=== PATIENT | female | born 1985 | race Caucasian/White ===

== ENCOUNTER 2019-09-02 09:18 | Emergency (ER) | payer BC, SELFPAY ==
[2019-09-02 09:30] VITALS: BP 93/65; PULSE 95; RESP 20; TEMP 37.1; O2SAT 98
--- NOTE | 2019-09-02 10:03 | ED.GENADULT ---
HPI - General Adult General Chief complaint: Upper Respiratory Infection Stated complaint: fever/facial pain/sinus pressure Time Seen by Provider: 09/02/19 10:03 Source: patient and RN notes reviewed Mode of arrival: ambulatory Limitations: no limitations History of Present Illness HPI narrative: 34-year-old female presents with complaints of upper respiratory infection, facial congestion, facial pressure (greater on RT), RT ear pain, cough, and intermittent headaches (not the worst of her life) for the past 3.5 weeks. Zyrtec, Flonase, Dayquil, [place] cold medicine, Sambucol cough medicine, and 800mg of Ibuprofen last this morning @ 05:30 with little relief. No facial swelling. [place] says she completed a 7 day (on 08/20/19) course of Augmentin without relief. Symptoms has increased of the last 4-5 days with increase facial pressure and RT ear pressure, body aches, and continuos fever as high as 101F, orally with intermittent chills and sweats. Dry cough/intermittent productive cough (yellow phlegm). No chest congestion. Nasal congestion. No rhinorrhea. No chest pain or shortness of breath. Exacerbating factors consist of smoke exposure. Denies nausea, vomiting, and abdominal pain. Tolerating po intake well. Remains active. [place] denies being , LMP 08/13/2019. Some parts of this dictation were generated by voice recognition software and may contain typographical and/or grammatical inaccuracies. Related Data Home Medications Medication Instructions Recorded Confirmed cetirizine 10 mg PO DAILY 09/02/19 09/02/19 fluticasone propionate 2 spray INTRANASAL DAILY 09/02/19 09/02/19 ibuprofen 200 mg PO Q6H PRN 09/02/19 09/02/19 Allergies Allergy/AdvReac Type Severity Reaction Status Date / Time No Known Allergies Allergy Verified 09/02/19 09:39 Review of Systems Review of Systems: Narrative: CONSTITUTIONAL: Complains of fever, chills, sweats. EYES: Denies visual changes, redness, discharge. ENT: Complains of RT otalgia, facial congestion and pressure, congestion. Denies sore throat, rhinorrhea. CARDIOVASCULAR: Denies chest pain, palpitations, edema. RESPIRATORY: Denies dyspnea, wheezing. Complains of dry cough/intermittent productive. GASTROINTESTINAL: Denies abdominal pain, nausea, vomiting, diarrhea. GENITOURINARY: Denies dysuria, hematuria, abnormal discharge. SKIN: Denies rash or itching. MUSCULOSKELETAL: Denies acute back pain, joint pain. Complains of myalgia. NEUROLOGIC: Denies numbness or focal weakness. Complains of intermittent [place]. PSYCHIATRIC: Denies anxiety or depression. All systems reviewed & are unremarkable except as noted in HPI and below. [facility] Past Medical History Medical History No significant past medical history Surgical History Surgical History History of adenoidectomy History of tonsillectomy Family History Family History Mother Family history of malignant neoplasm of cervix Social History Social History Alcohol intake: current Comments At time of signature, agree with nurse past medical, surgical, social, and family history. There is no relevant family history pertinent to the presenting complaint. Exam Narrative: Exam Narrative: GENERAL: This is a well-nourished, well-developed patient, in no apparent distress. Talks in full sentences and ambulates with steady gait without dyspnea. HEAD: normocephalic, atraumatic. EYES: PERRL. Sclera clear/white. Vision is grossly intact. EARS: External ears normal, auditory canals clear and without drainage, TMs normal without perforation. Hearing grossly intact. NOSE: External nose normal with no obvious nasal discharge, nares with moderate redness and enlarged turbinates, clear rhinorrhea. S
== END 2019-09-02 10:32 | disposition home or self-care (01) ==
PROVIDERS: Emergency Provider Nurse Practitioner Family
DX: J32.9 Chronic sinusitis, unspecified (principal)
CPT/HCPCS: 99203; G0463

== ENCOUNTER 2020-11-04 13:32 | Emergency (ER) | payer BC, SELFPAY ==
[2020-11-04 13:54] VITALS: BP 98/73; PULSE 88; RESP 12; TEMP 37.5; O2SAT 100
--- NOTE | 2020-11-04 14:26 | ED.URI ---
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 Patient states she has nearly weeklong history of sore throat, associate with definite hoarseness. No fever measured, earache -but she has a dry cough. Symptoms are mild, worse with speaking; she had Covid disease earlier no loss of taste/smell, CP, wheezing, S OB, vomiting/diarrhea. Prescription screen is negative, vital signs remarkable for blood pressure 98/73, similar to prior visit Related Data Allergies Allergy/AdvReac Type Severity Reaction Status Date / Time No Known Allergies Allergy Verified 11/04/20 13:52 Review of Systems Review of Systems: Narrative: General/Constitutional: No weight loss,fever Eyes: N0: Redness,discharge Ears/Nose/Throat: No: Epistaxis,ear discharge Respiratory: Denies: Hemoptysis Gastrointestinal: No Vomiting, Bleeding-rectal Skin: No Lumps, eruption Neurologic: No Focal Weakness,Sz Hematologic: Denies: Petechiae/Purpura Psychiatric: No: Suicida ideationl All Other Systems: Reviewed and Negative PMFSH Past Medical History Medical History (Updated 11/04/20 @ 16:13 by Morgan Francisco MD) No significant past medical history Surgical History Surgical History History of adenoidectomy History of tonsillectomy Family History Family History Mother Family history of malignant neoplasm of cervix Social History Social History Alcohol intake: current Comments At time of signature, agree with nursing past medical, surgical, social and family history. There is no relevant family history pertinent to the presenting complaint Exam Narrative: Exam Narrative: General Appearance: Well appearing, Well nourished EYE: PERRLA, Conjunctiva clear Ears: Auditory canal normal, TM normal Nose: Rhinorrhea, Mucousal erythema Mouth/Throat: MM moist, Uvula midline, Pharyngeal erythema Neck: Supple, No adenopathy Respiratory: No respiratory distress, Breath sounds equal, Clear to auscultation Cardiovascular: RRR, No JVD Musculoskeletal: Non tender, Normal strength Skin: Warm, Dry Neurological: A&O x3, CN II-XII intact Psychiatric: Normal mood, Normal affect t Course Vital Signs Vital signs: Vital Signs Temperature 99.5 F 11/04/20 13:54 Pulse Rate 88 11/04/20 13:54 Respiratory Rate 12 11/04/20 13:54 Blood Pressure 98/73 L 11/04/20 13:54 Pulse Oximetry 100 11/04/20 13:54 Temperature 99.5 F 11/04/20 13:54 Pulse Rate 88 11/04/20 13:54 Respiratory Rate 12 11/04/20 13:54 Blood Pressure 98/73 L 11/04/20 13:54 Pulse Oximetry 100 11/04/20 13:54 MDM - URI/Sore Throat Lab Data Labs: Strep Screen Presumptive Negative *(Reference Range: Negative)* Discharge Plan Discharge Clinical Impression: Odynophonia Pharyngitis Qualifiers: Pharyngitis/tonsillitis etiology: unspecified etiology Qualified Code(s): J02.9 - Acute pharyngitis, unspecified Patient Disposition: Home, Self-Care Condition: Stable Instructions: Antibiotic Form, Laryngitis (ED) Prescriptions: New azithromycin 250 mg tablet See Rx Instructions .ROUTE .COMPLEX Qty: 6 RF: 0 codeine-guaifenesin 10-100 mg/5 mL liquid 7.5 ml PO Q6H PRN (Reason: cough) Qty: 118 RF: 0 lidocaine HCl [Lidocaine Viscous] 2 % solution 5 ml MUCOUS MEM QID PRN (Reason: pain) Qty: 100 RF: 0 benzonatate [Tessalon Perles] 100 mg capsule 100 mg PO TID Qty: 20 RF: 1 Follow-up/Referrals: [facility]
[2020-11-06 19:20] LABS: SARS-CoV-2 RNA PCR Negative
== END 2020-11-04 14:30 | disposition home or self-care (01) ==
PROVIDERS: Emergency Provider Emergency Medicine
DX: J02.9 Acute pharyngitis, unspecified (principal); R13.10 Dysphagia, unspecified
CPT/HCPCS: 87081; 87880; 99213; C9803; G0463; U0003; U0005

== ENCOUNTER 2021-10-15 15:11 | Outpatient (CLI) | payer BC, SELFPAY ==
--- NOTE | ~2021-10-15 | US_ITS ---
EXAMINATION: US pelvic complete w TV EXAM DATE: 10/15/2021 15:47 INDICATION: N92.6 - Irregular menstruation, unspecified. TECHNIQUE: Pelvic transabdominal and transvaginal sonogram was performed. There are multiple graysca le and Doppler images available for interpretation. There is no prior study for comparison. FINDINGS: Uterus measures 7.8 x 4.9 x 3.3 cm, and is morphologically normal. Endometrial stripe julia sures 6 mm, within normal limits. There are scattered echogenic foci along the endometrial myometria l interface and small cluster in the lower uterine segment, without any shadowing. There are nabothia n cysts. There is no free pelvic fluid. Right adnexa: The ovary measures 2.5 x 1.6 x 1.8 cm and is morphologically normal. Ovarian vascular f low confirmed. Left adnexa: The ovary measures 2.9 x 2.3 x 1.6 cm and is morphologically normal. Ovarian vascular fl ow confirmed. IMPRESSION: Nonspecific echogenic endometrial foci, normal thickness. Reviewed, dictated and finalized at location A.
== END 2021-10-15 15:12 | disposition home or self-care (01) ==
LOC: ANHIMG 15:12
PROVIDERS: Visit Provider Obstetrics & Gynecology
DX: N92.6 Irregular menstruation, unspecified (principal)
CPT/HCPCS: 76830; 76856

== ENCOUNTER 2022-01-15 08:11 | Emergency (ER) | payer BC, SELFPAY ==
[2022-01-15 08:25] VITALS: BP 98/75; PULSE 111; RESP 16; TEMP 37.7; O2SAT 100
--- NOTE | 2022-01-15 08:32 | ED.URI ---
HPI - URI/Sore Throat General Chief Complaint: Upper Respiratory Infection Stated Complaint: possible sinus infection Time Seen by Provider: 01/15/22 08:22 Source: patient and RN notes reviewed Mode of arrival: ambulatory Limitations: no limitations History of Present Illness HPI Narrative: 36-year-old female presented for complaint of sinus pressure, congestion for almost 2 weeks. Endorses ear pressure, green sinus drainage, sore throat and headaches. She took a COVID test last night was negative. She denies sick contacts. She is not vaccinated for COVID. She denies shortness of breath, cough, wheezing, nausea, vomiting, diarrhea, fevers or chills. She is taking ibuprofen as needed for pain. MD elicited complaint: cough Related Data Home Medications Medication Instructions Recorded Confirmed levonorgestrel 0.1 mg-ethinyl 1 tablet DAILY 01/15/22 01/15/22 estradiol 20 mcg (21) tablet Allergies Allergy/AdvReac Type Severity Reaction Status Date / Time No Known Allergies Allergy Verified 01/15/22 08:29 Review of Systems Review of Systems: CONSTITUTIONAL: denies malaise, chills, sweats, fever EYES: Denies visual changes, redness, or discharge ENT: Reports rhinorrhea, congestion, sinus pain, otalgia, sore throat CARDIOVASCULAR: Denies chest pain, palpitations, edema RESPIRATORY: Reports cough, post nasal drainage. Denies dyspnea GASTROINTESTINAL: Denies abdominal pain, nausea, vomiting, diarrhea SKIN: Denies rash or itching MUSCULOSKELETAL: Denies myalgia PMFSH Past Medical History Medical History Irregular periods No significant past medical history Surgical History Surgical History History of adenoidectomy History of tonsillectomy Family History Family History Mother Family history of malignant neoplasm of cervix Social History Social History Alcohol intake: current Exam Narrative: GENERAL: well-appearing, nontoxic EYES: conjunctivae clear ENT: Mucous membranes moist. TM pearly ga with normal light reflex bilaterally; no tragal tenderness. Oropharynx normal without lesions or exudate, no drooling, no hoarseness, no trismus, uvula midline. NECK: Supple. No lymphadenopathy CHEST: Clear to auscultation, breath sounds equal. HEART: Regular rate and rhythm. No murmur heard. SKIN: Warm, dry, no rash. NEURO: Alert and oriented x3. PSYCH: Normal mood and affect Course Course Emergency Course: Patient is aware of diagnosis, understands and agrees to treatment plan. Anticipatory guidance given. Patient agrees to follow-up as directed and is aware of reasons to seek care at the emergency department. Portions of this record may have been created with voice recognition software Level of Care: Express Care Visit Vital Signs Vital signs: Vital Signs Temperature 99.9 F H 01/15/22 08:25 Pulse Rate 111 H 01/15/22 08:25 Respiratory Rate 16 01/15/22 08:25 Blood Pressure 98/75 L 01/15/22 08:25 Pulse Oximetry 100 01/15/22 08:25 Oxygen Delivery Room Air 01/15/22 08:25 Temperature 99.9 F H 01/15/22 08:25 Pulse Rate 111 H 01/15/22 08:25 Respiratory Rate 16 01/15/22 08:25 Blood Pressure 98/75 L 01/15/22 08:25 Pulse Oximetry 100 01/15/22 08:25 Oxygen Delivery Room Air 01/15/22 08:25 reviewed MDM - URI/Sore Throat MDM Narrative Medical decision making narrative: Advised supportive measures, reviewed Rx, and signs/symptoms to go to the ER. Pt is appropriate for outpt treatment and f/u. Differential Diagnosis Differential diagnosis: Likely upper respiratory infection, sinusitis and viral infection Discharge Plan Discharge Clinical Impression: Upper respiratory infection Qualifiers: URI type: unspecified URI Qualified Code(s): J06
== END 2022-01-15 08:41 | disposition home or self-care (01) ==
PROVIDERS: Emergency Provider Nurse Practitioner Family
DX: J06.9 Acute upper respiratory infection, unspecified (principal); Z28.310 Unvaccinated for COVID-19
CPT/HCPCS: 99213; G0463

== ENCOUNTER 2022-02-16 15:15 | Emergency (ER) | payer BC, SELFPAY ==
[2022-02-16 15:28] VITALS: BP 123/89; PULSE 103; RESP 16; TEMP 37.4; O2SAT 100
--- NOTE | 2022-02-16 15:39 | ED.URI ---
HPI - URI/Sore Throat General Chief Complaint: Upper Respiratory Infection Stated Complaint: sore throat, congestion Time Seen by Provider: 02/16/22 15:32 Source: patient and RN notes reviewed Mode of arrival: ambulatory Limitations: no limitations History of Present Illness HPI Narrative: 36-year-old female presents with concern for more than 1 month history of sinus congestion, pain. She reports a history of chronic sinus problems. Reports 1 month ago she was treated with Augmentin. She reports slight improvement in symptoms without resolution. Reports her symptoms have worsened over the last several days with sore throat and cough. She reports the cough is painful. She reports she took a negative COVID test yesterday, she is concerned for possible strep throat. She reports she has been using [id number] cold medicines, sinus rinses, allergy medicines without relief of her she denies any fever, bodies, chills, sweats, shortness of breath. MD elicited complaint: cough and sore throat Related Data Home Medications Medication Instructions Recorded Confirmed levonorgestrel 0.1 mg-ethinyl 1 tablet DAILY 01/15/22 01/15/22 estradiol 20 mcg (21) tablet Allergies Allergy/AdvReac Type Severity Reaction Status Date / Time No Known Allergies Allergy Verified 01/15/22 08:29 Review of Systems Review of Systems: CONSTITUTIONAL: Denies malaise, chills, sweats, or fever. EYES: Denies visual changes, redness, or discharge. ENT: Reports rhinorrhea, congestion, sinus pain,and sore throat. CARDIOVASCULAR: Denies chest pain, palpitations, or edema. RESPIRATORY: Reports cough. Denies dyspnea. GASTROINTESTINAL: Denies abdominal pain, nausea, vomiting, diarrhea SKIN: Denies rash or itching. MUSCULOSKELETAL: Denies myalgia. NEUROLOGIC: Denies headache. All systems reviewed & are unremarkable except as noted in HPI and below PMFSH Past Medical History Medical History Irregular periods No significant past medical history Surgical History Surgical History History of adenoidectomy History of tonsillectomy Family History Family History Mother Family history of malignant neoplasm of cervix Social History Social History Alcohol intake: current Comments At time of signature, agree with nursing past medical, surgical, social and family history. There is no relevant family history pertinent to the presenting complaint Exam Narrative: GENERAL: Well-appearing, well-nourished, and in no acute distress. HEAD: Normocephalic EYES: PERRLA, conjunctivae clear ENT: Nares clear, turbinates edematous and erythematous. Mucous membranes moist. TM pearly ga with dull light reflex bilaterally; no tragal tenderness. Oropharynx not erythematous without lesions. Tonsils not enlarged and without exudate, no drooling, no hoarseness, no trismus, uvula midline. NECK: Supple. No lymphadenopathy CHEST: Clear to auscultation, breath sounds equal. No wheezing, rhonchi, rales, or stridor. No respiratory distress, speaks in full sentences. HEART: Regular rate and rhythm. No murmur heard. SKIN: Warm, dry, no rash. NEURO: Alert and oriented x3. PSYCH: Normal mood and affect Course Course Emergency Course: Patient is aware of diagnosis, understands and agrees to treatment plan. Anticipatory guidance given. Patient agrees to follow-up as directed and is aware of reasons to seek care at the emergency department. Portions of this record may have been created with voice recognition software Level of Care: Express Care Visit Vital Signs Vital signs: Vital Signs Temperature 99.3 F 02/16/22 15:28 Pulse Rate 103 H 02/16/22 15:28 Respiratory Rate 16 02/16/22 15:28 Blood Pressure 123/89 02/16/22 15:28 Pulse Oximetry
== END 2022-02-16 15:47 | disposition home or self-care (01) ==
PROVIDERS: Emergency Provider Nurse Practitioner
DX: J32.9 Chronic sinusitis, unspecified (principal); J40 Bronchitis, not specified as acute or chronic
CPT/HCPCS: 87081; 87880; 99213; G0463

== ENCOUNTER 2022-04-22 13:06 | Emergency (ER) | payer OTHER, MEDICAID, SELFPAY ==
[2022-04-22 13:24] VITALS: BP 113/75; PULSE 86; RESP 16; TEMP 37.1; O2SAT 100
--- NOTE | 2022-04-22 13:51 | ED.URI ---
HPI - URI/Sore Throat General Chief Complaint: Upper Respiratory Infection Stated Complaint: Sinus Time Seen by Provider: 04/22/22 14:00 Source: patient and RN notes reviewed Mode of arrival: ambulatory Limitations: no limitations History of Present Illness HPI Narrative: 36-year-old female presents with concern for to 3 week history of sinus pain, pressure, irritation, congestion. She reports taking several [id number] medications without relief. She denies cough, fatigue, body aches, chills, sweats. MD elicited complaint: nasal congestion and sinus pain Related Data Allergies Allergy/AdvReac Type Severity Reaction Status Date / Time No Known Allergies Allergy Verified 04/22/22 13:30 Review of Systems Review of Systems: CONSTITUTIONAL: Denies malaise, chills, sweats, or fever. EYES: Denies visual changes, redness, or discharge. ENT: Reports rhinorrhea, congestion, sinus pain, otalgia and sore throat. CARDIOVASCULAR: Denies chest pain, palpitations, or edema. RESPIRATORY: Reports cough. Denies dyspnea. GASTROINTESTINAL: Denies abdominal pain, nausea, vomiting, diarrhea SKIN: Denies rash or itching. MUSCULOSKELETAL: Denies myalgia. NEUROLOGIC: Denies headache. 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 There is no relevant family history pertinent to the presenting complaint Exam Narrative: GENERAL: Well-appearing, well-nourished, and in no acute distress. HEAD: Normocephalic EYES: PERRLA, conjunctivae clear ENT: Nares clear, turbinates edematous and erythematous, sinus tenderness. Mucous membranes moist. TM pearly ga with dull light reflex bilaterally; no tragal tenderness. Oropharynx not erythematous without lesions. Tonsils not enlarged and without exudate, no drooling, no hoarseness, no trismus, uvula midline. NECK: Supple. No lymphadenopathy CHEST: Clear to auscultation, breath sounds equal. No wheezing, rhonchi, rales, or stridor. No respiratory distress, speaks in full sentences. HEART: Regular rate and rhythm. No murmur heard. SKIN: Warm, dry, no rash. NEURO: Alert and oriented x3. PSYCH: Normal mood and affect Course Course Emergency Course: Patient is aware of diagnosis, understands and agrees to treatment plan. Anticipatory guidance given. Patient agrees to follow-up as directed and is aware of reasons to seek care at the emergency department. Portions of this record may have been created with voice recognition software Level of Care: Express Care Visit Vital Signs Vital signs: Vital Signs Temperature 98.7 F 04/22/22 13:24 Pulse Rate 86 04/22/22 13:24 Respiratory Rate 16 04/22/22 13:24 Blood Pressure 113/75 04/22/22 13:24 Pulse Oximetry 100 04/22/22 13:24 Oxygen Delivery Room Air 04/22/22 13:24 Temperature 98.7 F 04/22/22 13:24 Pulse Rate 86 04/22/22 13:24 Respiratory Rate 16 04/22/22 13:24 Blood Pressure 113/75 04/22/22 13:24 Pulse Oximetry 100 04/22/22 13:24 Oxygen Delivery Room Air 04/22/22 13:24 Reviewed. MDM - URI/S
== END 2022-04-22 14:25 | disposition home or self-care (01) ==
PROVIDERS: Emergency Provider Nurse Practitioner
DX: J01.80 Other acute sinusitis (principal); B96.89 Other specified bacterial agents as the cause of diseases classified elsewhere
CPT/HCPCS: 99213; G0463

== ENCOUNTER 2022-08-19 15:15 | Outpatient (CLI) | payer OTHER, SELFPAY ==
[2022-08-19 15:50] LABS: Hematocrit 38.2 % (37.0-47.0); Hemoglobin 12.6 g/dL (12.0-15.0); Mean Corpuscular Hemoglobin 31.4 pg (26-34); Mean Corpuscular Volume 95.3 fl (80-100); Mean Platelet Volume 9.1 fl (7.4-10.4); Platelet Count Result 364 k/mm3 (150-375); Red Blood Count 4.01 M/mm3 (4.2-5.4); White Blood Count 9.5 K/mm3 (4.5-10.0)
== END 2022-08-19 15:16 | disposition home or self-care (01) ==
LOC: ANHSURGERY 15:18
PROVIDERS: Visit Provider Obstetrics & Gynecology
DX: Z01.818 Encounter for other preprocedural examination (principal)
CPT/HCPCS: 36415; 85027

== ENCOUNTER 2022-08-29 00:32 | Day surgery (SDC) | payer OTHER, SELFPAY ==
[2022-08-19 13:57] VITALS: BMI 21.9
--- NOTE | 2022-08-19 13:59 | PC.NURSE ---
Report to the Outpatient Waiting Room, entrance under the green pavilion located off [facility], at time _0630_ on date _08/29/22__. Planned Procedure Time: _0830_. Time changes happen often and if your time is changed the preop area will call you the afternoon before. - You and your visitor will be asked to self-screen and do not enter if you have any COVID symptoms. - Only one visitor is requested with a max of two and NO children visitors are allowed at this time. - The patient visitor may be requested to leave or wait in car when not with patient due to distancing restrictions. - A mask is optional within the hospital at this time. Patients may have clear liquids (water, carbonated beverages, clear teas, apple juice) until 3 hours prior to surgery with a maximum of 20 ounces. - No food from midnight until time of surgery - Infants may have breast milk until 4 hours before surgery, formula 6 hours prior to surgery. - Children will be allowed to drink immediately following surgery. If applicable, please bring a bottle or sippy cup to assist with drinking. Juice, water, soda, and popsicles are readily available. For infants on formula, please bring formula the day of surgery. Pacifiers are allowed. Take the following medications with a SIP of water the morning of surgery: __NONE__ DO NOT STOP ANY OF YOUR OTHER PRESCRIPTION MEDICATIONS PRIOR TO SURGERY ?EXCEPT THE FOLLOWING Medications to discontinue per physician _vitamins 3 days prior to surgery___ Date to take last dose Please no make-up, nail sami, hairspray, perfume, deodorant, or body powder the day of surgery. No jewelry (including any body piercings) or valuables the day of surgery, leave them at home. Please take a shower or bath the night before, or the morning of, surgery with an antibacterial soap. Wear comfortable, loose fitting clothing. Children are encouraged to wear pajamas. - Jewelry must be removed prior to entering the operating room. Rings and piercings that are not removed may be cut off. - The hospital will not accept responsibility for valuables. - Please leave all valuables, including medications, at home the day of surgery. If you are going home after surgery, a licensed tow driver must drive you home. - NO public transportation without another adult if you receive anesthesia. - We recommend that an adult stay with you for 24 hours following discharge. - We also recommend that you do not drive, make important decision, drink alcoholic beverages, or take any drugs that were not prescribed by your health care provider for at least 24 hours after your discharge time. For Pediatric surgeries, we recommend two adults accompany the child home. Follow any additional instructions given to you from your surgeon. If you or anyone in your household have experienced Covid symptoms in the past week, please notify your surgeon or the nurse liaison at the phone number below for possible testing. Telephone instructions given to _Patient__and asked if any additional questions and then verbalized understanding. Patient advised to call surgeon office or pre surgery nurse liaison [phone] if any additional questions.
--- NOTE | 2022-08-27 18:21 | PM.IMHP ---
H&P: HPI History of Present Illness Date/Time: 08/27/22 18:21 37-year-old female presents with longstanding history of low-grade lesion of her cervix with multiple colposcopic exams. Most recent Pap smear confirmed by colposcopy reveals a higher grade lesion. There for presents today for removal via LEEP conization. 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 Irregular periods No significant past medical history Surgical History Surgical History History of adenoidectomy History of cholecystectomy (~2010) History of colposcopy (~07/17/22) HIGH-GRADE SQUAMOUS INTRAEPITHELIAL LESION (MIGUE 2), History of colposcopy with cervical biopsy 03/02/14 ascus +hpv 05/09/21 benign History of tonsillectomy Family History Family History Mother Family history of malignant neoplasm of cervix Tongue carcinoma Social History Social History Smoking packs per day: 1 Smoking cigarettes per day: 20.0 Years smoked: 20 Smoking pack-years: 20.00 Smoking status: Former smoker Tobacco type: cigarettes and e-cigarettes/vaping Smoking end date: 08/19/21 Additional smoking assessment comments: pt stated she stopped somking cigarettes 1 year ago and started vaping pedro Alcohol intake: current Alcohol use details: Few times a month Substance use: never Substance use type: does not use Living arrangements: with family Additional living arrangements comments: Occupation/Education: occupation Additional occupation/education comments: teacher Gender identity (if verbalized by the patient): Female Sexual Orientation (if Verbalized by the Patient): Straight or Heterosexual Spiritual care concerns: No Meds Home Medications and Allergies Home Medications Medication Instructions Recorded Confirmed Type drospirenone 3 mg-ethinyl 1 tablet PO DAILY #84 tabs 07/09/22 08/19/22 Rx estradiol 0.02 mg tablet valacyclovir 500 mg tablet 500 mg PO .prn PRN fever blisters 07/09/22 08/19/22 History cholecalciferol (vitamin D3) 125 125 mcg PO DAILY 08/19/22 08/19/22 History mcg (5,000 unit) tablet (Vitamin D3) vitamin B complex 1 tablet PO DAILY 08/19/22 08/19/22 History Allergies Allergy/AdvReac Type Severity Reaction Status Date / Time No Known Allergies Allergy Verified 07/09/22 15:53 Exam Const: General: cooperative, healthy appearing and comfortable Resp: Effort & Inspection: normal respiratory effort Auscultation: clear to auscultation bilaterally Cardio: Rate: regular rate Rhythm: regular rhythm GI: Inspection: normal to inspection Auscultation: normal bowel sounds : External Female Exam: normal external appearance Speculum Exam - Vagina: normal appearance of the vagina Speculum Exam - Cervix: normal appearance of the cervix Bimanual exam- vagina & uterus: normal bimanual exam Bimanual Exam- Adnexa, other: normal adnexae Assessment and Plan Assessment and plan (1) HGSIL on cytologic smear of cervix: Code(s): R87.613 - High grade squamous intraepithelial lesion on cytologic smear of cervix (HGSIL) Status: Acute Plan 1. Proceed with LEEP conization
--- NOTE | 2022-08-28 12:02 | WPDANESEPPF ---
Anes - Initial Pre Proc Eval Procedure: Operation Date: 08/29/22 08:30 Proposed Procedures p Loop Electrical Excision Procedure - Mo Abraham MD Date/Time: 08/28/22 12:02 Surgeon: Mo Abraham MD Pre Op Diagnosis: cervical dysplasia Patient Data Age: 37 Gender: F Height: 1.57 m Weight: 54.43 kg Allergies Allergy/AdvReac Type Severity Reaction Status Date / Time No Known Allergies Allergy Verified 07/09/22 15:53 Home Medications Medication Instructions Recorded Confirmed Type drospirenone 3 mg-ethinyl 1 tablet PO DAILY #84 tabs 07/09/22 08/19/22 Rx estradiol 0.02 mg tablet valacyclovir 500 mg tablet 500 mg PO .prn PRN fever blisters 07/09/22 08/19/22 History cholecalciferol (vitamin D3) 125 125 mcg PO DAILY 08/19/22 08/19/22 History mcg (5,000 unit) tablet (Vitamin D3) vitamin B complex 1 tablet PO DAILY 08/19/22 08/19/22 History Patient hx anesthesia problems: none Family hx anesthesia problems: none Results Review: All pre-operative results and documents have been reviewed as part of the pre-operative evaluation. 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 Irregular periods No significant past medical history Surgical History Surgical History History of adenoidectomy History of cholecystectomy (~2010) History of colposcopy (~07/17/22) HIGH-GRADE SQUAMOUS INTRAEPITHELIAL LESION (MIGUE 2), History of colposcopy with cervical biopsy 03/02/14 ascus +hpv 05/09/21 benign History of tonsillectomy Family History Family History Mother Family history of malignant neoplasm of cervix Tongue carcinoma Social History Social History Smoking packs per day: 1 Smoking cigarettes per day: 20.0 Years smoked: 20 Smoking pack-years: 20.00 Smoking status: Former smoker Tobacco type: cigarettes and e-cigarettes/vaping Smoking end date: 08/19/21 Additional smoking assessment comments: pt stated she stopped somking cigarettes 1 year ago and started vaping pedro Alcohol intake: current Alcohol use details: Few times a month Substance use: never Substance use type: does not use Living arrangements: with family Additional living arrangements comments: Occupation/Education: occupation Additional occupation/education comments: teacher Gender identity (if verbalized by the patient): Female Sexual Orientation (if Verbalized by the Patient): Straight or Heterosexual Spiritual care concerns: No Anes - Eval Final PreProcedure Day of Procedure 08/28/22 12:02 Patient weight: normal Heart: regular rate and rhythm Lungs: clear to auscultation and normal air movement Airway: Mallampati scale class II Neurological: alert and oriented Last oral intake: >/= 8 hours ASA classification: II Emergent: no Anesthetic plan: proceed Anesthesia type and monitoring: general GIVS and standard monitoring Results Review: All pre-operative results and documents have been reviewed as part of the pre-operative evaluation. Informed Consent: The patient's anesthetic plan and its attendant risks and benefits were discussed with the patient/family/POA. Questions were solicited and answers provided to the satisfaction of the patient/family/POA.
[2022-08-29 06:30] VITALS: BP 109/69; PULSE 77; RESP 16; TEMP 37.7; O2SAT 100
--- NOTE | 2022-08-29 06:58 | WPDHPUPDATE1 ---
History and Physical Update Update Date/Time: 08/29/22 06:58 History and Physical has been reviewed, including an updated exam of the patient. There are NO changes in the patient's condition. Risks, benefits, and alternatives have been discussed and questions answered. Patient agrees to proceed with procedure.
[2022-08-29] MEDS: ACETAMINOPHEN 500 MG TABLET 1000 MG PO (07:00)
[2022-08-29] MEDS: LACTATED RINGERS 1,000 ML 30 ML IV CONT (07:00)
[2022-08-29] MEDS: KETOROLAC 30 MG/ML VIAL (*BKC) IV PUSH (08:42)
[2022-08-29] MEDS: IODINE/POTASSIUM IODIDE 8 ML SOLUTION TOPICAL (08:50)
--- NOTE | 2022-08-29 08:55 | W.PM.PROC2 ---
Procedure Note - Detailed Date of Procedure 08/29/22 Pre-op Diagnosis High-grade squamous intraepithelial lesion of the cervix Post-op Diagnosis Same Procedure Performed 1. LEEP conization Surgeon Mo Abraham MD Anesthesia MAC Findings Transformation zone well delineated Description of Procedure Baby was prepped in usual manner this procedure. Lugol solution was used to delineate the transformation zone which was readily noted. Appropriate LEEP instrument was a then used to obtain the ectocervical specimen. Smaller loop was used for an endocervical specimen. There was minimal bleeding but the bed of the biopsy site was cauterized. There was no cyst bleeding at this point and the patient was sent to recovery room in stable condition. Estimated Blood Loss 10 Drains No Packing No Pathology Yes Complications No immediate complications Condition Stable Disposition PACU [facility] Billing Surgery - Charge Forward: Surgery Billing
[2022-08-29 09:00] VITALS: BP 88/51; PULSE 72; RESP 12; O2SAT 97
[2022-08-29 09:30] VITALS: BP 96/56; PULSE 54; RESP 12
[2022-08-29 09:53] VITALS: BP 103/65
== END 2022-08-29 10:06 | disposition home or self-care (01) ==
PROVIDERS: Visit Provider Obstetrics & Gynecology
PROC: 0UBC7ZZ Excision of Cervix, Via Natural or Artificial Opening (ICD-10-PCS; CPT 57522; principal; 2022-08-29 08:30)
DX: D06.1 Carcinoma in situ of exocervix (principal); A63.0 Anogenital (venereal) warts; B00.9 Herpesviral infection, unspecified; F17.290 Nicotine dependence, other tobacco product, uncomplicated
CPT/HCPCS: 57522; 36415; 85027; 88305; A9270; J1100; J1885; J2250; J2405; J2704; J3010; J7120